=== PATIENT | female | born 1945 | race Asian ===

== ENCOUNTER 2024-01-28 11:00 | Emergency (ER) | payer OTHER ==
[~2024-01-28] VITALS: Ht 152.4 cm; Wt 57.7 kg
[2024-01-28 11:02] VITALS: BP 127/73; PULSE 111; RESP 18; TEMP 97.9; O2SAT 97
[2024-01-28 12:27] LABS: BASOPHILS # (AUTO) 0.1 K/uL (0.00-0.22); BASOPHILS % (AUTO) 0.9 % (0.0-2.0); EOSINOPHILS # (AUTO) 0.4 K/uL (0-0.4); EOSINOPHILS % (AUTO) 6.5 % (0.0-4.0); HEMATOCRIT 34.2 % (36-48); HEMOGLOBIN 11.6 g/dL (12.0-16.0); LYMPHOCYTES % (AUTO) 15.5 % (20.5-51.1); MEAN CORPUSCULAR HEMOGLOBIN 30 pg (27-31); MEAN CORPUSCULAR HGB CONC 34 g/dL (33-37); MEAN CORPUSCULAR VOLUME 89.2 fL (80-94); MONOCYTES # (AUTO) 0.9 K/uL (0.8-1.0); NEUTROPHILS # (AUTO) 3.9 K/uL (1.8-7.7); NEUTROPHILS % (AUTO) 63.1 % (42.2-75.2); PLATELET COUNT (AUTO) 307 K/uL (140-450); RED BLOOD CELL COUNT(AUTO) 3.83 MIL/uL (4.20-5.40); RED CELL DISTRIBUTION WIDTH 12.6 % (11.6-13.7); WHITE BLOOD COUNT (AUTO) 6.2 K/uL (4.8-10.8)
[2024-01-28 12:39] LABS: INR 0.99 (0.8-1.2); PARTIAL THROMBOPLASTIN TIME 25.8 secs (22-35.6); PROTHROMBIN TIME 10.4 secs (10.8-13.4)
[2024-01-28 12:42] LABS: CARBON DIOXIDE 32.6 mmol/L (21-32); CHLORIDE 96 mmol/L (98-107); CREATININE 1.8 mg/dL (0.6-1.3); GLUCOSE 164 mg/dL (74-106); POTASSIUM 3.6 mmol/L (3.5-5.1); SODIUM SERUM 134 mmol/L (136-145); UREA NITROGEN, BLOOD 21 mg/dL (7-18)
[2024-01-28] MEDS ORDERED: PROM118S5 PO (19:02)
[2024-01-28] MEDS ORDERED: AZIT250T4 PO (19:02)
[2024-01-28] MEDS ORDERED: AMOX1TAB8 PO (19:02)
[2024-01-28 20:05] VITALS: BP 123/70; PULSE 97; RESP 18; TEMP 97.9; O2SAT 96
== END 2024-01-28 20:06 | disposition home or self-care (01) ==
LOC: MED 11:00
DX: J18.9 Pneumonia, unspecified organism (principal); R79.1 Abnormal coagulation profile; R00.0 Tachycardia, unspecified; Z79.899 Other long term (current) drug therapy
CPT/HCPCS: 36415; 71045; 80048; 83880; 84484; 85025; 85379; 85610; 85730; 93005; 99285